=== PATIENT | female | born 1940 | race Caucasian/White ===

== ENCOUNTER → 2016-12-15 | Day surgery (SDC) | payer OTHER ==
[~2016-12-15] VITALS: Ht 172.7 cm; Wt 59.0 kg
[~2016-12-15] MED LIST: CLARITIN10 M1 PO; LEVOTHYROXINE50 MCG PO; METOPROLOL SUCC25 M1 PO
--- NOTE | 2016-12-15 09:19 | Operative Report ---
Operative/Inv Procedure Report Surgery Date: 12/15/16 Name of Procedure: Bronchoscopy with brushings and bronchoalveolar lavage, mediastinal endoscopy Pre-Operative Diagnosis: Mediastinal lymphadenopathy Post-Operative Diagnosis: Metastatic carcinoma, possible right lower lobe lung mass Estimated Blood Loss: less than 50ml Surgeon/Motor Power Connector: YINA LUCAS,KRUNAL Patel JR Anesthesia: general endotracheal tube Operative/Procedure Note Note: After placing monitoring lines and induction of general anesthesia we proceeded first with the mediastinoscopy because of need for [place] turnover. The patient's chest and neck area were prepped and draped in a sterile fashion. An incision was made above the sternal notch and carried down to pretracheal fascia. The posterior mediastinum was entered easily with blunt dissection. The mediastinoscope was advanced to the sub-carinal lymph nodes which were freed of surrounding tissue and biopsy directly. Intraoperative frozen section disclose evidence of a metastatic carcinoma in these nodes. Further specimens were taken and sent for permanent histology. The right paratracheal lymph nodes seen on CT scan was I isolated and was removed and this was also sent for permanent histology. Hemostasis was achieved with electrocautery and with Surgicel packing. The wound was closed in layers with deep Vicryl suture followed by running Vicryl subcuticular suture. A fiberoptic bronchoscopy was then done through the endotracheal tube. In the right lower lobe at the basilar segments there was found to be significant erythema and induration and with slight advancement of the bronchoscope there was some oozing from the origins of the basilar segmental bronchi. It was flushed with cold saline and the lavage fluid was sent for cytology. A brush was passed into the airway and sent for cytology evaluation. There was no obvious mass lesion seen in any part of the Endo bronchus. Irrigation was done with lidocaine with epinephrine and there was good hemostasis at the bronchial origins. The scope was removed and the patient was extubated. She was brought to the recovery room awake in stable condition. CC: FRED LUCAS,RAFFI Lovell
--- NOTE | 2016-12-15 09:50 | RADIOLOGY REPORT ---
EXAMINATION: XR PORTABLE CHEST CLINICAL INFORMATION: Status post bronchoscopy/mediastinoscopy COMPARISON: 12/12/2016 TECHNIQUE: Portable AP semiupright view of the chest was obtained. FINDINGS: Mild bibasilar atelectasis. No consolidation, pneumothorax, or pleural effusion. Cardiac and mediastinal contours are normal. No appreciable pneumomediastinum. Pulmonary vasculature is unremarkable. Soft tissues are normal. Bones are osteopenic. 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 IMPRESSION: No acute cardiopulmonary findings. Mild bibasilar atelectasis.
== END ==
LOC: STS 01:36
DX: C77.8 Secondary and unspecified malignant neoplasm of lymph nodes of multiple regions (principal); E03.9 Hypothyroidism, unspecified; I34.1 Nonrheumatic mitral (valve) prolapse; Z85.3 Personal history of malignant neoplasm of breast; C79.51 Secondary malignant neoplasm of bone
CPT/HCPCS: 88305; 88331; J0131; J2250